=== PATIENT | male | born 1960 | race Caucasian/White ===

== ENCOUNTER 2017-10-28 03:23 | Inpatient (IN) | payer BC ==
[~2017-10-28] VITALS: Ht 167.6 cm; Wt 95.6 kg
[~2017-10-28 03:23] MED LIST: LOSA50TA6 PO; METF-383 PO; SIMV10TA2 PO
[2017-10-28] MEDS ORDERED: ONDANSETRON INJ 2 MG/ML 2 ML VIAL IV STA (03:33)
[2017-10-28] MEDS ORDERED: KETOROLAC TROMETHAMINE 30 MG/ML VIAL IV STA (03:33)
[2017-10-28] MEDS ORDERED: MoRPHine SULFATE 4 MG/ML 1 ML CARP\\VIAL IV STA ×2 (03:33→05:08)
[2017-10-28] MEDS ORDERED: SODIUM CHLORIDE 0.9% 1000ML 1,000 ML IV STA (03:39)
[2017-10-28 04:15] LABS: BASO % 0.4 %; BASO ABS # 0.03 K/uL (0-0.2); EOS % 3.7 %; EOS ABS # 0.28 K/uL (0-0.5); HEMATOCRIT 41.4 % (42-52); HEMOGLOBIN 14.5 g/dL (14.0-18.0); IG# 0.02 K/uL (0.00-0.02); LYMPH % 28.5 %; LYMPH ABS # 2.16 K/uL (1.2-3.4); MEAN CELL VOLUME 87.9 fL (80-100); MEAN CORPUSCULAR HEMOGLOBIN 30.8 pg (25-34); MEAN PLATELET VOLUME 11.6 fL (7.4-10.4); MONO ABS # 0.61 K/uL (0.11-0.59); NEUT % 59.1 %; NEUT ABS # 4.49 K/uL (1.4-6.5); PLATELET COUNT 144 K/uL (130-400); RED CELL DISTRIBUTION WIDTH SD 41.7 fL (36.4-46.3); WHITE BLOOD COUNT 7.59 K/uL (4.8-10.8)
[2017-10-28 04:55] LABS: ALBUMIN 3.6 gm/dl (3.4-5.0); CALCIUM 8.8 mg/dl (8.5-10.1); CREATININE 0.83 mg/dl (0.60-1.40); TOTAL PROTEIN 7.1 gm/dl (6.4-8.2)
[2017-10-28] MEDS ORDERED: OXYCODONE IR HOME PACK PO ONE (05:15)
[2017-10-28] MEDS ORDERED: ONDANSETRON HOME PACK 4MG OD TAB PO ONE (05:15)
[2017-10-28] MEDS ORDERED: HYDROmorphone INJ 1 MG/ML SYR IV STA (05:40)
[2017-10-28] MEDS ORDERED: TAMSULOSIN HCL 0.4 MG CAP PO ONE (05:45)
--- NOTE | 2017-10-28 05:46 | EMERGENCY ROOM VISIT NOTE ---
History First contact with patient: 03:31 Chief Complaint: KIDNEY STONE Stated Complaint: KIDNEY STONE History of Present Illness The patient is a 57 year old male who presents to the Emergency Room with complaints of sudden onset of severe left flank pain for the past 2 hours that woke him up out of sleep. Patient took 2 Motrin's with no real improvement of symptoms. Dr. Patricio is his urologist. He has had stents in the past. Patient denies chest pain, dyspnea, abdominal pain, penile pain, testicular pain , vomiting, diarrhea, fever, chills. Review of Systems An 10 system review of systems was completed with positives and pertinent negatives listed in the HPI. Past Medical/Surgical History Medical Problems: (1) Diab Mona Wo Compl, Type Ii Or Unspec Type, Not Uncntrld (2) Flank pain (3) Hyperlipidemia Nec/Nos (4) Hypertension Nos (5) Kidney stone (6) Kidney stones (7) Renal colic (8) Ureteral calculus, right (9) Urticaria (10) Urticaria Surgical Problems: (1) H/O lumbar discectomy (2) History of appendectomy (3) S/P lumbar laminectomy Family History Patient reports no known family medical history. Social History Smoking Status: Never Smoker Alcohol Use: occasionally Drug Use: none Marital Status: Housing Status: lives with family Occupation Status: employed Current/Historical Medications Scheduled Losartan Potassium (Cozaar), 50 MG PO QAM Metformin Hcl (Glucophage), 850 MG PO BID Simvastatin (Zocor), 10 MG PO QPM Physical Exam Vital Signs Date Time Temp Pulse Resp B/P (MAP) Pulse Ox O2 Delivery O2 Flow Rate FiO2 10/28/17 06:17 77 18 157/81 94 Room Air 10/28/17 04:58 72 18 148/72 96 Room Air 10/28/17 03:28 36.6 74 18 175/91 96 Room Air Physical Exam VITALS: Vitals are noted on the nurse's note and reviewed by myself. Vital signs hypertensive. GENERAL: White male who appears in pain, in no acute distress, nondiaphoretic, well-developed well-nourished. SKIN: Right upper back with sutures intact without signs of infection, the rest of the skin was without rashes, erythema, edema, or bruising. There is no tenting of the skin. Capillary reflex less than 2 seconds. HEAD: Normocephalic atraumatic. EARS: External auditory canals clear, tympanic membranes pearly johnson without erythema or effusion bilaterally. EYES: Pupils equal round and reactive to light and accommodation. Conjunctivae without injection, sclerae without icterus. Extraocular movements intact. NOSE: Patent, turbinates without inflammation or discharge. MOUTH: Mucous membranes moist. Pharynx without erythema or exudate. Uvula midline. Airway patent. Tongue does not deviate. NECK: Supple without nuchal rigidity. No lymphadenopathy. No thyromegaly. Cervical spine is nontender. No JVD. HEART: Regular rate and rhythm without murmurs gallops or rubs. LUNGS: Clear to auscultation bilaterally without wheezes, rales or rhonchi. No retractions or accessory muscle use. ABDOMEN: Positive bowel sounds x 4. Normal tympanic percussion. Soft, nontender, without masses or organomegaly. Joseph sign negative. No guarding or rebound tenderness. No CVA tenderness MUSCULOSKELETAL: No muscle atrophy, erythema, or edema noted. NEURO: Patient was alert and oriented to person place and time. Normal sensation to light and sharp touch. No focal neurological deficits. Medical Decision & Procedures Laboratory Results 10/28/17 04:00 Red Blood Count 4.71, Mean Corpuscular Volume 87.9, Mean Corpuscular Hemoglobin 30.8, Mean Corpuscular Hemoglobin Concent 35.0, Mean Platelet Volume 11.6, Neutrophils (%) (Auto) 59.1, Lymphocytes (%) (Auto) 28.5, Monocytes (%) (Auto) 8.0, Eosinophils (%) (Auto) 3.7, Basophils (%) (Auto) 0.4, Neutrophils # (Auto) 4.49, Lymphocytes # (Auto) 2.16, Monocytes # (Auto) 0.61, Eosinophils # (Auto) 0.28, Basophils # (Auto) 0.03 10/28/17 04:00 Test 10/28/17 04:00 10/28/17 04:50 White Blood Count 7.59 K/uL (4.8-10.8) Red Blood Count 4.71 M/uL (4.7-6.1) Hemoglobin 14.5 g/dL (14.0-18.0) Hematocrit 41.4 % (42-52) Mean Corpuscular Volume 87.9 fL (80-100) Mean Corpuscular Hemoglobin 30.8 pg (25-34) Mean Corpuscular Hemoglobin Concent 35.0 g/dl (32-36) Platelet Count 144 K/uL (130-400) Mean Platelet Volume 11.6 fL (7.4-10.4) Neutrophils (%) (Auto) 59.1 % Lymphocytes (%) (Auto) 28.5 % Monocytes (%) (Auto) 8.0 % Eosinophils (%) (Auto) 3.7 % Basophils (%) (Auto) 0.4 % Neutrophils # (Auto) 4.49 K/uL (1.4-6.5) Lymphocytes # (Auto) 2.16 K/uL (1.2-3.4) Monocytes # (Auto) 0.61 K/uL (0.11-0.59) Eosinophils # (Auto) 0.28 K/uL (0-0.5) Basophils # (Auto) 0.03 K/uL (0-0.2) RDW Standard Deviation 41.7 fL (36.4-46.3) RDW Coefficient of Variation 13.0 % (11.5-14.5) Immature Granulocyte % (Auto) 0.3 % Immature Granulocyte # (Auto) 0.02 K/uL (0.00-0.02) Anion Gap 9.0 mmol/L (3-11) Est Creatinine Clear Calc Drug Dose 104.5 ml/min Estimated GFR () 112.4 Estimated GFR (Non- 97.0 BUN/Creatinine Ratio 18.4 (10-20) Calcium Level 8.8 mg/dl (8.5-10.1) Total Bilirubin 0.4 mg/dl (0.2-1) Direct Bilirubin mg/dl (0-0.2) Aspartate Amino Transf (AST/SGOT) U/L (15-37) Alanine Aminotransferase (ALT/SGPT) 35 U/L (12-78) Alkaline Phosphatase 113 U/L (45-117) Total Protein 7.1 gm/dl (6.4-8.2) Albumin 3.6 gm/dl (3.4-5.0) Urine Color ORANGE Urine Appearance CLOUDY (CLEAR) Urine pH 5.0 (4.5-7.5) Urine Specific [place] 1.034 (1.000-1.030) Urine Protein 3+ (NEG) Urine Glucose (UA) TRACE (NEG) Urine Ketones NEG (NEG) Urine Occult Blood 3+ (NEG) Urine Nitrite POS (NEG) Urine Bilirubin NEG (NEG) Urine Urobilinogen NEG (NEG) Urine Leukocyte Esterase SMALL (NEG) Urine WBC (Auto) 5-10 /hpf (0-5) Urine RBC (Auto) >30 /hpf (0-4) Urine Hyaline Casts (Auto) 1-5 /lpf (0-5) Urine Epithelial Cells (Auto) 20-30 /lpf (0-5) Urine Bacteria (Auto) NEG (NEG) Medications Administered Medications (Trade) Dose Ordered Sig/Venancio Route Start Time Stop Time Status Last Admin Dose Admin Ketorolac Tromethamine (Toradol Inj) 10 mg NOW STAT IV 10/28/17 03:33 10/28/17 03:35 DC 10/28/17 04:02 10 MG Morphine Sulfate (MoRPHine SULFATE INJ) 4 mg NOW STAT IV 10/28/17 03:33 10/28/17 03:35 DC 10/28/17 04:02 4 MG Ondansetron HCl (Zofran Inj) 4 mg NOW STAT IV 10/28/17 03:33 10/28/17 03:35 DC 10/28/17 04:02 4 MG Sodium Chloride 1,000 ml @ 999 mls/hr Q1H1M STAT IV 10/28/17 03:39 10/28/17 04:39 DC 10/28/17 04:02 999 MLS/HR Morphine Sulfate (MoRPHine SULFATE INJ) 4 mg NOW STAT IV 10/28/17 05:08 10/28/17 05:10 DC 10/28/17 05:16 4 MG Oxycodone HCl (Roxicodone Immediate Rel 5MG Home Pack) 1 homepack UD ONCE PO 10/28/17 05:15 10/28/17 05:16 DC 10/28/17 05:16 1 HOMEPACK Ondansetron HCl (ZOFRAN ODT 4MG Home Pack) 1 homepack UD ONCE PO 10/28/17 05:15 10/28/17 05:16 DC 10/28/17 05:16 1 HOMEPACK Hydromorphone HCl (Dilaudid Inj) 1 mg NOW STAT IV 10/28/17 05:40 10/28/17 05:41 DC 10/28/17 05:48 1 MG Tamsulosin HCl (Flomax Cap) 0.4 mg NOW ONCE PO 10/28/17 05:45 10/28/17 05:46 DC 10/28/17 05:46 0.4 MG ED Course Prior records/ancillary studies reviewed. Triage Nursing notes reviewed. Additional history obtained from the family. The patient's history was concerning for left flank pain. Differential diagnosis: Etiologies such as renal colic, appendicitis, diverticulitis, mesenteric ischemia, aortic pathology, infections, inflammatory bowel disease, PUD, biliary pathology, UTI, as well as others were entertained. Physical examination findings: As above. ER treatment provided: Toradol, morphine, Zofran, IV fluids On reassessment the patient felt better. Diagnostic interpretation by me: The labs revealed hyperglycemia without DKA. Urinalysis revealed hematuria. There was no sign of UTI. Imaging studies: US RENAL: Mild left hydronephrosis. No right hydronephrosis. Decompressed urinary bladder limits assessment for ureteral jets. Radiologist: Vasquez Hull M.D. Consultation: A consultation was placed with Dr Gibson hospitalist. The case was discussed and diagnostics were reviewed. The patient was evaluated in the ER for further treatment. It appears that the patient has isolated renal colic from a left sided stone. Patient was still in severe amount of pain despite 4 rounds of pain meds and Flomax. Medicine was consulted for possible admission. Patient is agreement to treatment plan. Repeat abdominal exam was benign. He did not have acute abdomen on exam. He was afebrile and nontoxic. I do not believe the patient is a UTI. He was not complaining of any urinary symptoms. By the evaluation outlined above emergent etiologies such as appendicitis, diverticulitis, mesenteric ischemia, aortic pathology, infections, inflammatory bowel disease, PUD, biliary pathology, UTI, as well as others were deemed relatively unlikely. The pt informed about the findings as listed above. All questions were answered and pleased with the treatment. Case reviewed with my attending The chart was completed utilizing babbel voice recognition software. Grammatical errors, random word insertions, pronoun errors, and incomplete sentences are an occassional consequence of this system due to software limitations, ambient noise, and hardware issues. Any formal questions or concerns about the content, text, or information contained within the body of this dictation should be directly addressed to the physician product safety technical assistant for clarification. Medical Decision As above [place] Drug Monitoring Program Search Results: patient reviewed within database, no issues identified Medication Reconcilliation Current Medication List: was personally reviewed by me Blood Pressure Screening Patient's blood pressure: Elevated blood pressure Blood pressure disposition: Referred to PCP Impression Primary Impression: Ureteral calculus, left Additional Impressions: Intractable pain Diabetes mellitus with hyperglycemia Departure Information Dispostion Being Evaluated By Hospitalist Condition GOOD Referrals Isrrael Goyal M.D. (PCP) Patient Instructions My [facility] Problem Qualifiers
[2017-10-28] MEDS ORDERED: POLYETHYLENE (MIRALAX) 17 GM PACK PO PRN (06:00)
[2017-10-28] MEDS ORDERED: ONDANSETRON INJ 2 MG/ML 2 ML VIAL IV PRN (06:00)
[2017-10-28] MEDS ORDERED: ALUMINUM/MAGNESIUM/SIMETH (MAALOX MAX) 30 ML UDC PO PRN (06:00)
[2017-10-28] MEDS ORDERED: KETOROLAC TROMETHAMINE 30 MG/ML VIAL IV PRN (06:00)
[2017-10-28] MEDS ORDERED: ACETAMINOPHEN 325 MG TAB PO PRN (06:00)
[2017-10-28] MEDS ORDERED: HYDROmorphone INJ 0.5 MG/0.5 ML SYR IV PRN (06:00)
[2017-10-28] MEDS ORDERED: IV FLUIDS COMPLETED PRN ×2 (06:15→06:30)
[2017-10-28] MEDS ORDERED: CARBOHYDRATES FOR HYPOGLYCEMIA PO PRN (06:30)
[2017-10-28] MEDS ORDERED: GLUCOSE 40% GEL 15 GM TUBE PO PRN (06:30)
[2017-10-28] MEDS ORDERED: GLUCOSE 10 TABS/TUBE PO PRN (06:30)
[2017-10-28] MEDS ORDERED: GLUCAGON FOR INJ 1 MG VIAL IM PRN (06:30)
[2017-10-28] MEDS ORDERED: DEXTROSE 50% 50 ML SYR IV PRN (06:30)
[2017-10-28 06:38] VITALS: BP 147/86; PULSE 72; TEMP 36.7; O2SAT 92
--- NOTE | 2017-10-28 07:19 | DIAGNOSTIC IMAGING REPORT ---
KUB CLINICAL HISTORY: Nephrolithiasis. FINDINGS: 2 AP supine abdominal radiographs are correlated with abdominal CT dated 06/03/2013. There is a nonobstructed abdominal bowel gas pattern noting moderate colonic fecal retention. No evidence of intraperitoneal free air is seen on these supine images. There is no radiographic evidence of nephrolithiasis. Small vascular calcifications are noted in the pelvis. The skeletal structures are osteopenic. Mild lumbosacral spondylosis is observed. IMPRESSION: 1. There is no radiographic evidence of nephrolithiasis. 2. Moderate colonic fecal retention. Electronically signed by: Pravin Cleveland M.D. 10/28/2017 7:17 AM Dictated Date/Time: 10/28/2017 7:16 AM
--- NOTE | 2017-10-28 07:45 | HISTORY & PHYSICAL EXAMINATION ---
DATE OF ADMISSION: 10/28/2017 CHIEF COMPLAINT: Left flank pain. HISTORY OF PRESENT ILLNESS: This is a 57-year-old male with past medical history significant for hypertension, hyperlipidemia,kidney stones, diabetes, disaccharidase deficiency, presents with left flank pain. Patient woke up around 2 o'clock in the morning with severe left flank pain, which brought him to the ER. Patient has a history of kidney stones in the past. Ultrasound in the ER showed left hydronephrosis. He required lot of pain medications. Still has about 6/10 in severity pain. Denies any nausea, denies fever, no headaches, hard of hearing, no chest pain, no shortness of breath, no cough. Normal bowel and bladder movements. In the last bladder movement, he noted some blood, but he denies any pain while micturition. No rash. Patient is currently resting comfortably and hemodynamically stable. ALLERGIES: BEE VENOM AND OXYBUTYNIN. PAST MEDICAL HISTORY: As mentioned above. PAST SURGICAL HISTORY: Arthrocentesis, recently had a lipoma removed from the right side of his back, epidural shots, appendectomy, kidney stone removal. MEDICATIONS: Patient is on simvastatin 10 mg p.o. at bedtime, losartan 50 mg p.o. daily, metformin 850 mg p.o. b.i.d. FAMILY HISTORY: Significant for mother with arthritis, father had a heart disorder. SOCIAL HISTORY: No smoking history. Alcohol rarely. No drug use. REVIEW OF SYMPTOMS: As per HPI. Rest of his systems review negative. PHYSICAL EXAMINATION: GENERAL: Patient is of moderate build, not in distress. VITAL SIGNS: Temperature 36.6, pulse 102, respiratory rate 18, blood pressure 114/72, oxygen saturation 96% on room air. HEENT: No pallor, no icterus. Pupils equal, round, and reactive to light. NECK: No JVD, no neck masses, no carotid bruits. CARDIOVASCULAR SYSTEM: S1 and S2 heard, regular rate and rhythm, no murmur, no gallop. RESPIRATORY SYSTEM: Clear to auscultation bilaterally. No wheezing, no crackles. GASTROINTESTINAL: Abdomen is soft, bowel sounds present. Left CVA tenderness present. No distention. CENTRAL NERVOUS SYSTEM: Cranial nerves II through XII grossly intact. Nonfocal. EXTREMITIES: No edema, no erythema. LABORATORY DATA: WBC 7.5, hemoglobin 14.5, hematocrit 41.4, platelets 144. Sodium 138, chloride 105, CO2 of 24, BUN 15, creatinine 0.8, serum glucose 209, calcium 8.8, total bilirubin 0.4, alkaline phosphatase 113. Urinalysis positive for nitrite and leukocyte esterase. Renal ultrasound, unofficial report, left hydronephrosis. ASSESSMENT AND PLAN: This is a 57-year-old male who presents with renal colic. 1. Renal colic, possible left renal stone with the ultrasound showing left hydronephrosis. Will get a KUB. History of renal stones in the past. We will give him IV fluids, pain medicine, antiemetics p.r.n., Flomax. Will follow the urine culture. Consult urology for further recommendations. 2. History of diabetes. Hold metformin. Placed him on insulin sliding scale. 3. Hyperlipidemia. Continue statin. 4. Deep venous thrombosis prophylaxis. SCDs for now. 5. Disposition: Admit to medical floor. Expect discharge home and follow with family doctor. Level 1 full code. MTDD
--- NOTE | 2017-10-28 08:04 | DIAGNOSTIC IMAGING REPORT ---
(KAILEE/BLAD)RETROPERITON COMP CLINICAL HISTORY: 57 years-old Male presenting with left flank pain ? stone. TECHNIQUE: Real-time grayscale and limited color Doppler ultrasound imaging of the kidneys and bladder was performed. COMPARISON: CT from 06/03/2013 and ultrasound from 05/24/2013. FINDINGS: Right kidney: Normal echogenicity of renal parenchyma. Right kidney measures 11.1 cm. No hydronephrosis. No convincing evidence of calculus or mass. Left kidney: Normal echogenicity of renal parenchyma. Left kidney measures 12.4 cm. Mild pelvocaliectasis, new from prior. No convincing evidence of calculus or mass. Bladder: Decompressed and incompletely evaluated. Bilateral ureteral jets not visualized. Other: Hyperechogenicity of liver parenchyma suggests hepatic steatosis. The spleen is mildly enlarged measuring 13.7 cm in maximal sagittal dimension. IMPRESSION: 1. Mild left pelvocaliectasis. Mild left hydronephrosis cannot be excluded. Further evaluation with CT to be considered as clinically indicated. 2. Hepatic steatosis. 3. Mild splenomegaly. Electronically signed by: Hayden Awad M.D. 10/28/2017 8:02 AM Dictated Date/Time: 10/28/2017 7:59 AM
[2017-10-28 08:05] VITALS: BP 147/86; PULSE 72; TEMP 36.7; O2SAT 96; Ht 167.6 cm; Wt 95.6 kg
[2017-10-28] MEDS: SODIUM CHLORIDE 0.9% 1000ML 1,000 ML IV SCH ×3 (10:11→19:49)
[2017-10-28] MEDS: LOSARTAN POTASSIUM 50 MG TAB PO SCH (10:12)
[2017-10-28] MEDS: INSULIN ASPART 100 UNITS/ML 3 ML PEN SC SCH ×4 (10:15→21:52)
[2017-10-28] MEDS ORDERED: NURSING VERBAL MED ORDER ONE ×2 (12:30→22:30)
--- NOTE | 2017-10-28 13:27 | Urology Consultation ---
History General Date of Service: Oct 28, 2017. Primary Care Physician: Isrrael Goyal M.D. Pt seen a urologist before?: Yes (Dr. Patricio) If yes, why?: Nephrolithiasis History of Present Illness 57 YO male, left flank pain, mild left hydronephrosis, history of stones. Last seen for this issue by Dr. Patricio in 2013. Patient reported to the ER last night with worsening left flank pain. Imaging reviewed: stones not visible on KUB, renal US shows questionable left mild hydro. Creatinine stable at 0.83. Patient reports feeling better this morning, states that his pain is controlled with medication. Reports feeling hungry, denies nausea/vomiting. Is experiencing hematuria, is straining all urine. Denies dysuria, frequency, urgency. Denies fever/chills. Imaging Imaging: KUB, Ultrasound Images were done at: [facility] Laboratory Labs were reviewed and are within normal limits unless listed below. Labs are available in the chart and at [facility] Problem List Medical Problems: (1) Diab Mona Wo Compl, Type Ii Or Unspec Type, Not Uncntrld Status: Chronic (2) Diabetes mellitus with hyperglycemia Status: Acute (3) Hyperlipidemia Nec/Nos Status: Chronic (4) Hypertension Nos Status: Chronic (5) Intractable pain Status: Acute (6) Kidney stone Status: Chronic (7) Ureteral calculus, left Status: Acute Past History diabetes, high cholesterol, hypertension, kidney stones, other (hematuria) Past Surgical History: appendectomy, ureteral stent Family History Patient reports no known family medical history. Social History Hx Tobacco Use In Past Year?: No Smoking: non-smoker Alcohol: occasional Drug use: none Marital status: Occupation status: employed History of MDRO No Allergies Coded Allergies: BEE STING (Verified Allergy, Severe, local swelling to anaphylactic shock , 10/28/17) Oxybutynin (Verified Allergy, Intermediate, rash, 10/28/17) Medications Home Medications: Home Meds and Scripts Medications Dose Route/Sig Max Daily Dose Days Date Category Glucophage (Metformin Hcl) 850 Mg Tab 850 Mg PO BID 05/13/13 Reported Zocor (Simvastatin) 10 Mg Tab 10 Mg PO QPM 04/11/13 Reported Cozaar (Losartan Potassium) 50 Mg Tab 50 Mg PO QAM 04/11/13 Reported Inpatient Medications: Current Inpatient Medications Medications (Trade) Dose Ordered Sig/Venancio Route Start Time Stop Time Status Last Admin Dose Admin Acetaminophen (Tylenol Tab) 650 mg Q4H PRN PO 10/28/17 06:00 11/27/17 05:59 Al Hydrox/Mg Hydrox/Simethicone (Maalox Max Susp) 15 ml Q4H PRN PO 10/28/17 06:00 11/27/17 05:59 Polyethylene (Miralax Powder Packet) 17 gm DAILY PRN PO 10/28/17 06:00 11/27/17 05:59 Ondansetron HCl (Zofran Inj) 4 mg Q6H PRN IV 10/28/17 06:00 11/27/17 05:59 Losartan Potassium (coZAAR TAB) 50 mg QAM PO 10/28/17 09:00 11/27/17 08:59 10/28/17 10:12 50 MG Simvastatin (Zocor Tab) 10 mg QPM PO 10/28/17 21:00 11/27/17 20:59 Hydromorphone HCl (Dilaudid Inj) 0.5 mg Q3HWA PRN IV 10/28/17 06:00 11/11/17 05:59 Ketorolac Tromethamine (Toradol Inj) 30 mg Q6H PRN IV 10/28/17 06:00 11/02/17 05:59 Sodium Chloride 1,000 ml @ 150 mls/hr Q6H40M IV 10/28/17 06:00 11/27/17 05:59 10/28/17 12:52 150 MLS/HR Tamsulosin HCl (Flomax Cap) 0.4 mg QAM PO 10/29/17 09:00 11/28/17 08:59 Insulin Aspart (novoLOG ASPART) SLIDING SCALE G... ACHS SC 10/28/17 07:00 11/27/17 06:59 10/28/17 12:57 5 UNITS Miscellaneous (Iv Fluids Completed) 1 ea PRN PRN N/A 10/28/17 06:15 10/28/18 06:14 Glucose (Glucose 40% Gel) 15-30 GRAMS 15 GRAMS... UD PRN PO 10/28/17 06:30 11/27/17 06:29 Glucose (Glucose Chew Tab) 4-8 Tablets 4 Tabl... UD PRN PO 10/28/17 06:30 11/27/17 06:29 Dextrose (Dextrose 50% 50ML Syringe) 25-50ML 25ML FOR ... UD PRN IV 10/28/17 06:30 11/27/17 06:29 Glucagon (Glucagon Inj) 1 mg UD PRN IM 10/28/17 06:30 11/27/17 06:29 Carbohydrates (Carbohydrates For Hypoglycemia) 15-30 GRAMS 15 grams if BSG 54-69... UD PRN PO 10/28/17 06:30 11/27/17 06:29 Review of Systems Review of Systems Constitutional: No fever, No chills Eyes: No blurred vision Neurological: No dizzy, No numbness/tingling Gastrointestinal: + abdominal pain, No nausea, No vomiting Cardiovascular: No chest pain Respiratory: No shortness of breath Skin: No rash Musculoskeletal: + back pain Psychologic / Mental: No problem reported Male : + blood in urine, + kidney stones, No frequent urination, No painful urination, No urinary retention, No weak stream, No leaking urine Physical Exam Vital Signs: Vital Signs Past 12 Hours Date Time Temp Pulse Resp B/P (MAP) Pulse Ox O2 Delivery O2 Flow Rate FiO2 10/28/17 08:05 36.7 72 17 147/86 96 Room Air 10/28/17 06:38 36.7 72 17 147/86 (106) 92 Room Air 10/28/17 06:17 77 18 157/81 94 Room Air 10/28/17 04:58 72 18 148/72 96 Room Air 10/28/17 03:28 36.6 74 18 175/91 96 Room Air Physical Exam: General Appearance: no apparent distress Eyes: bilateral eyes normal inspection ENT: hearing grossly normal Neck: supple, no JVD Respiratory/Chest: no respiratory distress, no accessory muscle use Cardiovascular: no JVD Gastrointestinal: Abdomen: diffuse Bladder: normal bladder Renal: cva tenderness (left) Extremities: normal inspection Neurologic/Psychiatric: alert, normal mood/affect, oriented x 3 Skin: normal color Assessment & Plan Assessment & Plan 57 YO male, left flank pain, mild left hydronephrosis, history of stones. Stones not visible on KUB, questionable L hydro on renal US. Patient is experiencing gross hematuria. Creatinine stable. Afebrile, pain is controlled. Will check CT abdomen & pelvis to better visualize. Will check UC&S. Continue IVF, Flomax, push PO intake. Continue Zofran and pain control PRN. Will provide diet today, NPO at midnight in the event that surgical intervention is required tomorrow AM. Thank you for the consult, will continue to follow along with primary service. Agree with above . Non contrast ct confirms 4 mm proximal l ureteral stone . No renal stones kub in am and npo as above
[2017-10-28] MEDS ORDERED: OPTIRAY 320 IV PRN (13:45)
--- NOTE | 2017-10-28 13:52 | DIAGNOSTIC IMAGING REPORT ---
CT SCAN OF THE ABDOMEN AND PELVIS WITH IV CONTRAST CLINICAL HISTORY: Left flank pain. COMPARISON STUDY: Abdominal CT dated 06/03/2013. Renal ultrasound and KUB dated 10/28/2017. TECHNIQUE: Following the IV administration of 92 cc of Optiray 320, CT scan of the abdomen and pelvis is performed from the lung bases to the proximal femora. Images are reviewed in the axial, sagittal, and coronal planes. IV contrast was administered without complication. A dose lowering technique was utilized adhering to the principles of ALARA. CT DOSE: 990.45 mGy.cm FINDINGS: Lung bases: The heart is normal in size and without pericardial effusion. There is a 10 mm round pulmonary nodule seen at the left lung base on image #16. The lung bases are otherwise clear noting dependent atelectasis. There is a small fat-containing umbilical hernia. Liver: The contrast-enhanced liver is normal in size slightly heterogeneous in attenuation. There is mild nodularity of the hepatic surface contour. There is no intrahepatic biliary ductal dilatation. The hepatic veins and portal veins are patent. Gallbladder: Unremarkable. Spleen: The spleen is mildly enlarged, measuring 13.3 cm in length. Pancreas: Moderately atrophic and grossly unremarkable. Adrenal glands: Unremarkable. Kidneys: The contrast enhanced kidneys are normal in size. There is a 4 mm obstructing calculus identified in the left proximal ureter seen on image #236 at the level of L4. This causes mild left hydroureteronephrosis. No additional calculi are identified in either kidney on this contrast-enhanced examination. Bilateral perinephric stranding is nonspecific. The kidneys enhance symmetrically. Abdominal vasculature: The abdominal aorta is normal in course and caliber noting moderate atherosclerotic calcification. Bowel: There are scattered colonic diverticula without CT evidence of acute diverticulitis. Mild colonic fecal retention is observed. No bowel obstruction is seen. The appendix is not identified. Peritoneum: There is no intraperitoneal free air or abdominal ascites. Lymphadenopathy: None. Pelvic viscera: The bladder, prostate, and seminal vesicles are normal as visualized. Skeletal structures: No lytic or blastic lesions are seen. IMPRESSION: 1. There is a 4 mm obstructing calculus in the left proximal ureter at the level of L4. This causes mild left hydroureteronephrosis. 2. No additional calculi are identified in either kidney on this contrast-enhanced examination. 3. There is an indeterminant 10 mm pulmonary nodule at the left lung base. Follow-up with a nonemergent chest CT and pulmonology consultation is recommended. 4. The appearance of the liver suggests early change of cirrhosis. 5. Mild splenomegaly. 6. Additional findings as above. Electronically signed by: Pravin Cleveland M.D. 10/28/2017 1:51 PM Dictated Date/Time: 10/28/2017 1:41 PM
[2017-10-28 15:15] VITALS: BP 129/69; PULSE 69; TEMP 36.5; O2SAT 96
--- NOTE | 2017-10-28 15:22 | Hospitalist Progress Note ---
Hospitalist Progress Note Date of Service Oct 28, 2017. (Evelin Haro ., DARY) Subjective Pt evaluation today including: conversation w/ patient, physical exam, chart review, lab review, review of studies, conversation w/ compliance consultant Pt seen and examined. Pt sitting in bed, reports flank pain controlled for past 1.5 hours. Denies any nausea or vomiting. BM yesterday. Having some hematuria, denies dysuria, urinary frequency/retention. Denies fever/chills, diaphoresis, BOBO, dizziness, syncope, CP, SOB, other abdominal pain, extremity edema. (Evelin Haro ., DARY) Medications Medications (Trade) Dose Ordered Sig/Venancio Route Start Time Stop Time Status Last Admin Dose Admin Ketorolac Tromethamine (Toradol Inj) 10 mg NOW STAT IV 10/28/17 03:33 10/28/17 03:35 DC 10/28/17 04:02 10 MG Morphine Sulfate (MoRPHine SULFATE INJ) 4 mg NOW STAT IV 10/28/17 03:33 10/28/17 03:35 DC 10/28/17 04:02 4 MG Ondansetron HCl (Zofran Inj) 4 mg NOW STAT IV 10/28/17 03:33 10/28/17 03:35 DC 10/28/17 04:02 4 MG Sodium Chloride 1,000 ml @ 999 mls/hr Q1H1M STAT IV 10/28/17 03:39 10/28/17 04:39 DC 10/28/17 04:02 999 MLS/HR Morphine Sulfate (MoRPHine SULFATE INJ) 4 mg NOW STAT IV 10/28/17 05:08 10/28/17 05:10 DC 10/28/17 05:16 4 MG Oxycodone HCl (Roxicodone Immediate Rel 5MG Home Pack) 1 homepack UD ONCE PO 10/28/17 05:15 10/28/17 05:16 DC 10/28/17 05:16 1 HOMEPACK Ondansetron HCl (ZOFRAN ODT 4MG Home Pack) 1 homepack UD ONCE PO 10/28/17 05:15 10/28/17 05:16 DC 10/28/17 05:16 1 HOMEPACK Hydromorphone HCl (Dilaudid Inj) 1 mg NOW STAT IV 10/28/17 05:40 10/28/17 05:41 DC 10/28/17 05:48 1 MG Tamsulosin HCl (Flomax Cap) 0.4 mg NOW ONCE PO 10/28/17 05:45 10/28/17 05:46 DC 10/28/17 05:46 0.4 MG Losartan Potassium (coZAAR TAB) 50 mg QAM PO 10/28/17 09:00 11/27/17 08:59 10/28/17 10:12 50 MG Sodium Chloride 1,000 ml @ 150 mls/hr Q6H40M IV 10/28/17 06:00 11/27/17 05:59 10/28/17 12:52 150 MLS/HR Insulin Aspart (novoLOG ASPART) SLIDING SCALE G... ACHS SC 10/28/17 07:00 11/27/17 06:59 10/28/17 12:57 5 UNITS (Evelin Haro PA-C) Objective Vital Signs Date Time Temp Pulse Resp B/P (MAP) Pulse Ox O2 Delivery O2 Flow Rate FiO2 10/28/17 08:05 36.7 72 17 147/86 96 Room Air 10/28/17 06:38 36.7 72 17 147/86 (106) 92 Room Air 10/28/17 06:17 77 18 157/81 94 Room Air 10/28/17 04:58 72 18 148/72 96 Room Air 10/28/17 03:28 36.6 74 18 175/91 96 Room Air (Evelni Haro PA-C) Physical Exam General Appearance: no apparent distress, + obese Eyes: normal inspection, sclerae normal ENT: hearing grossly normal, pharynx normal, + pertinent finding (mucous membranes moist) Neck: supple, trachea midline Respiratory/Chest: lungs clear, normal breath sounds, no respiratory distress Cardiovascular: regular rate, rhythm, no murmur Abdomen: normal bowel sounds, non tender, soft, + pertinent finding (+L CVA tenderness) Extremities: normal range of motion, no pedal edema Neurologic/Psychiatric: alert, normal mood/affect, oriented x 3 Skin: warm/dry (Evelin Haro PA-C) Laboratory Results Last 24 Hours Test 10/28/17 04:00 10/28/17 04:50 10/28/17 08:19 White Blood Count 7.59 K/uL Red Blood Count 4.71 M/uL Hemoglobin 14.5 g/dL Hematocrit 41.4 % Mean Corpuscular Volume 87.9 fL Mean Corpuscular Hemoglobin 30.8 pg Mean Corpuscular Hemoglobin Concent 35.0 g/dl Platelet Count 144 K/uL Mean Platelet Volume 11.6 fL Neutrophils (%) (Auto) 59.1 % Lymphocytes (%) (Auto) 28.5 % Monocytes (%) (Auto) 8.0 % Eosinophils (%) (Auto) 3.7 % Basophils (%) (Auto) 0.4 % Neutrophils # (Auto) 4.49 K/uL Lymphocytes # (Auto) 2.16 K/uL Monocytes # (Auto) 0.61 K/uL Eosinophils # (Auto) 0.28 K/uL Basophils # (Auto) 0.03 K/uL RDW Standard Deviation 41.7 fL RDW Coefficient of Variation 13.0 % Immature Granulocyte % (Auto) 0.3 % Immature Granulocyte # (Auto) 0.02 K/uL Sodium Level 138 mmol/L Potassium Level mmol/L Chloride Level 105 mmol/L Carbon Dioxide Level 24 mmol/L Anion Gap 9.0 mmol/L Blood Urea Nitrogen 15 mg/dl Creatinine 0.83 mg/dl Est Creatinine Clear Calc Drug Dose 104.5 ml/min Estimated GFR () 112.4 Estimated GFR (Non- 97.0 BUN/Creatinine Ratio 18.4 Random Glucose 209 mg/dl Calcium Level 8.8 mg/dl Total Bilirubin 0.4 mg/dl Direct Bilirubin mg/dl Aspartate Amino Transf (AST/SGOT) U/L Alanine Aminotransferase (ALT/SGPT) 35 U/L Alkaline Phosphatase 113 U/L Total Protein 7.1 gm/dl Albumin 3.6 gm/dl Urine Color ORANGE Urine Appearance CLOUDY Urine pH 5.0 Urine Specific [place] 1.034 Urine Protein 3+ Urine Glucose (UA) TRACE Urine Ketones NEG Urine Occult Blood 3+ Urine Nitrite POS Urine Bilirubin NEG Urine Urobilinogen NEG Urine Leukocyte Esterase SMALL Urine WBC (Auto) 5-10 /hpf Urine RBC (Auto) >30 /hpf Urine Hyaline Casts (Auto) 1-5 /lpf Urine Epithelial Cells (Auto) 20-30 /lpf Urine Bacteria (Auto) NEG Bedside Glucose 222 mg/dl (Evelin Haro PA-C) Assessment and Plan L FLANK PAIN L HYDRONEPHROSIS Probable L ureteral stone -Pt reports pain controlled this morning. Having gross hematuria, no dysuria -pending urine culture -continue Toradol, Dilaudid prn pain -continue Flomax -strain urine -consider further imaging study - await urology recommendations -urology consult appreciate recommendations HTN -continue losartan DM II HA1c: 6.8 on 08/27/17 -hold metformin -basal, bolus insulin per protocol DYSLIPIDEMIA -continue simvastatin DVT Prophylaxis -SCDs in case possible procedure Disposition anticipate home, possible tomorrow Follows with Dr Goyal for routine care Pt was seen with Dr Cotto. See addendum (Evelin Haro PA-C) Attending addendum She seen and examined care coordinated with Gillian Haro PA-C 57-year-old male presents with a left flank pain KUB shows no visible renal stone, ultrasound of kidneys shows minimum/ questionable left-sided mild hydro-nephrosis Appreciate input from urology Flank pain has resolved this morning Renal function/creatinine stable at 0.[address] abdomen pelvis: Shows 4 mm obstructing left proximal ureteric stone Observed overnight Pain control, IV fluids N.p.o. past midnight until urology evaluation tomorrow Claire Cotto MD (Claire Cotto M.D.)
[2017-10-28] MEDS ORDERED: MAGNESIUM HYDROXIDE SUSP 30 ML UDC PO ONE (19:45)
[2017-10-28] MEDS ORDERED: MAGNESIUM HYDROXIDE SUSP 30 ML UDC PO PRN (19:45)
[2017-10-28] MEDS ORDERED: SIMVASTATIN 10 MG TAB PO SCH (21:00)
[2017-10-28] MEDS: INSULIN GLARGINE SOLOSTAR 100 UNITS/ML 3 ML PEN SC SCH (21:51)
[2017-10-28 23:59] VITALS: BP 137/74; PULSE 74; TEMP 36.7; O2SAT 95
[2017-10-29] MEDS: SODIUM CHLORIDE 0.9% 1000ML 1,000 ML IV SCH ×2 (02:12→08:40)
[2017-10-29] MEDS: INSULIN ASPART 100 UNITS/ML 3 ML PEN SC SCH ×3 (06:38→09:26)
[2017-10-29 07:42] LABS: BASO % 0.4 %; BASO ABS # 0.02 K/uL (0-0.2); EOS % 3.9 %; EOS ABS # 0.21 K/uL (0-0.5); HEMATOCRIT 36.2 % (42-52); HEMOGLOBIN 12.4 g/dL (14.0-18.0); IG# 0.02 K/uL (0.00-0.02); LYMPH % 33.1 %; MEAN CELL VOLUME 89.4 fL (80-100); MEAN CORPUSCULAR HEMOGLOBIN 30.6 pg (25-34); MEAN CORPUSCULAR HGB CONC 34.3 g/dl (32-36); MONO % 9.2 %; NEUT ABS # 2.88 K/uL (1.4-6.5); PLATELET COUNT 113 K/uL (130-400); RED CELL DISTRIBUTION WIDTH CV 13.2 % (11.5-14.5); RED CELL DISTRIBUTION WIDTH SD 42.7 fL (36.4-46.3); WHITE BLOOD COUNT 5.43 K/uL (4.8-10.8)
--- NOTE | 2017-10-29 08:02 | DIAGNOSTIC IMAGING REPORT ---
KUB CLINICAL HISTORY: 57 years-old Male presenting with ureteral stone. TECHNIQUE: Single supine view of the abdomen was obtained. COMPARISON: CT and KUB from 10/28/2017. FINDINGS: Mild stool burden noted throughout the colon. Nonobstructive bowel gas pattern. No gross pneumoperitoneum. The previously noted proximal left ureteral calculus at the level of L4 evident on CT is not identifiable by radiograph likely due to its punctate size. Stable calcifications in the pelvis. No radiographic evidence of renal calculi. Degenerative changes of the spine. Lung bases clear. IMPRESSION: 1. Nonvisualization of the punctate proximal left ureteral calculus previously visualized at the level of L4 on CT and not previously identifiable by radiograph. This may be best followed with ultrasound evaluating for resolution of the previously noted left hydronephrosis on CT. Electronically signed by: Hayden Awad M.D. 10/29/2017 8:01 AM Dictated Date/Time: 10/29/2017 7:58 AM
[2017-10-29 08:09] VITALS: BP 152/86; PULSE 70; TEMP 36.8; O2SAT 94
[2017-10-29 08:10] LABS: CALCIUM 7.9 mg/dl (8.5-10.1); CREATININE 0.67 mg/dl (0.60-1.40); POTASSIUM 4.2 mmol/L (3.5-5.1); URIC ACID 3.6 mg/dl (2.6-7.2)
[2017-10-29 08:16] VITALS: O2SAT 94
--- NOTE | 2017-10-29 08:57 | Urology Progress Note ---
Progress Note Date of Service Oct 29, 2017. Subjective Pt evaluation today including: conversation w/ patient, physical exam, chart review, lab review Pain: denies PO Intake: tolerating Voiding: no voiding problems 57 YO male, left flank pain, mild left hydronephrosis, 4mm left ureteral stone. Patient reports feeling well this morning. Denies pain, states he slept well and no issues with pain overnight. Denies fever/chills. Denies nausea. Denies issues voiding, states that hematuria has resolved. Feels that he empties bladder completely, no dysuria, no frequency, no urgency. Constitutional: No fever, No chills Respiratory: No shortness of breath Cardiovascular: No chest pain Abdomen: No pain, No nausea, No vomiting Male : No dysuria, No urinary frequency, No incontinence, No slowing stream, No hematuria Neurologic: No numbness/tingling Objective Vital Signs Date Time Temp Pulse Resp B/P (MAP) Pulse Ox O2 Delivery O2 Flow Rate FiO2 10/29/17 08:16 94 Room Air 10/29/17 08:09 36.8 70 16 152/86 (108) 94 Room Air 10/29/17 07:50 Room Air 10/29/17 00:10 Room Air 10/28/17 23:59 36.7 74 16 137/74 (95) 95 Room Air 10/28/17 15:50 Room Air 10/28/17 15:15 36.5 69 17 129/69 (89) 96 Room Air Physical Exam General Appearance: no apparent distress Eyes: normal inspection ENT: hearing grossly normal Neck: supple, no JVD Respiratory/Chest: no respiratory distress, no accessory muscle use Cardiovascular: no JVD Abdomen: non tender, soft Extremities: normal inspection Neurologic/Psychiatric: alert, normal mood/affect, oriented x 3 Skin: normal color Laboratory Results Last 24 Hours Test 10/28/17 12:13 10/28/17 17:09 10/28/17 20:59 10/29/17 00:00 Bedside Glucose 204 mg/dl 187 mg/dl 205 mg/dl 129 mg/dl Test 10/29/17 05:52 10/29/17 07:09 Bedside Glucose 124 mg/dl White Blood Count 5.43 K/uL Red Blood Count 4.05 M/uL Hemoglobin 12.4 g/dL Hematocrit 36.2 % Mean Corpuscular Volume 89.4 fL Mean Corpuscular Hemoglobin 30.6 pg Mean Corpuscular Hemoglobin Concent 34.3 g/dl Platelet Count 113 K/uL Mean Platelet Volume 11.0 fL Neutrophils (%) (Auto) 53.0 % Lymphocytes (%) (Auto) 33.1 % Monocytes (%) (Auto) 9.2 % Eosinophils (%) (Auto) 3.9 % Basophils (%) (Auto) 0.4 % Neutrophils # (Auto) 2.88 K/uL Lymphocytes # (Auto) 1.80 K/uL Monocytes # (Auto) 0.50 K/uL Eosinophils # (Auto) 0.21 K/uL Basophils # (Auto) 0.02 K/uL RDW Standard Deviation 42.7 fL RDW Coefficient of Variation 13.2 % Immature Granulocyte % (Auto) 0.4 % Immature Granulocyte # (Auto) 0.02 K/uL Sodium Level 139 mmol/L Potassium Level 4.2 mmol/L Chloride Level 108 mmol/L Carbon Dioxide Level 27 mmol/L Anion Gap 4.0 mmol/L Blood Urea Nitrogen 10 mg/dl Creatinine 0.67 mg/dl Est Creatinine Clear Calc Drug Dose 130.0 ml/min Estimated GFR () 122.8 Estimated GFR (Non- 105.9 BUN/Creatinine Ratio 14.7 Random Glucose 148 mg/dl Uric Acid 3.6 mg/dl Calcium Level 7.9 mg/dl Magnesium Level 2.4 mg/dl Assessment and Plan 57 YO male, left flank pain, mild left hydronephrosis, 4mm left ureteral stone. Denies pain overnight and this morning. Afebrile, Cr stable. Denies issues with urinary pattern. Stone still not visible on KUB, patient has history of ureteral stent placement and would like to avoid. 4mm stone has good chance of spontaneous passage. I reviewed criteria requiring emergent intervention including fever, nausea/ vomiting, or if pain becomes severe. Patient voices understanding. Recommend patient continue Flomax QHS and pain control PRN. Recommend patient push PO intake and continue to strain all urine. Will coordinate outpatient follow up in our office in 7-10 days to check on symptoms. Patient to call office sooner with questions/concerns. Thank you for allowing us to participate in the care of this patient.
[2017-10-29] MEDS ORDERED: TAMSULOSIN HCL 0.4 MG CAP PO SCH (09:00)
[2017-10-29] MEDS ORDERED: NURSING VERBAL MED ORDER ONE ×2 (09:00→12:30)
[2017-10-29] MEDS: LOSARTAN POTASSIUM 50 MG TAB PO SCH (09:07)
--- NOTE | 2017-10-29 09:07 | Hospitalist Progress Note ---
Hospitalist Progress Note Date of Service Oct 29, 2017. (Evelin Haro PA-C) Subjective Pt evaluation today including: conversation w/ patient, physical exam, chart review, lab review, review of studies Pt seen and examined. Patient sitting up in bed. Denies any flank pain since yesterday and reports is feeling well and has not needed any pain medications. Denies nausea or vomiting. Small BM last night. States no further gross hematuria noted since yesterday afternoon. Denies voiding difficulties or dysuria. Has been NPO after midnight for possible urology procedure today. Denies fever/chills, dizziness, CP, SOB, abdominal pain. (Evelin Haro PA-C) Medications Medications (Trade) Dose Ordered Sig/Venancio Route Start Time Stop Time Status Last Admin Dose Admin Losartan Potassium (coZAAR TAB) 50 mg QAM PO 10/28/17 09:00 11/27/17 08:59 10/28/17 10:12 50 MG Simvastatin (Zocor Tab) 10 mg QPM PO 10/28/17 21:00 11/27/17 20:59 10/28/17 21:49 10 MG Insulin Glargine (Lantus Solostar Pen) 5 units Q12 SC 10/28/17 21:00 11/27/17 20:59 10/28/17 21:51 5 UNITS Magnesium Hydroxide (Milk Of Magnesia Susp) 30 ml NOW ONCE PO 10/28/17 19:45 10/28/17 20:06 DC 10/28/17 20:13 30 ML (Evelin Haro PA-C) Objective Vital Signs Date Time Temp Pulse Resp B/P (MAP) Pulse Ox O2 Delivery O2 Flow Rate FiO2 10/29/17 08:16 94 Room Air 10/29/17 08:09 36.8 70 16 152/86 (108) 94 Room Air 10/29/17 07:50 Room Air 10/29/17 00:10 Room Air 10/28/17 23:59 36.7 74 16 137/74 (95) 95 Room Air 10/28/17 15:50 Room Air 10/28/17 15:15 36.5 69 17 129/69 (89) 96 Room Air (Schreckengost, Evelin ., PA-C) Physical Exam General Appearance: no apparent distress, + obese Eyes: normal inspection, sclerae normal ENT: hearing grossly normal, + pertinent finding (mucous membranes moist) Neck: supple, trachea midline Respiratory/Chest: lungs clear, normal breath sounds, no respiratory distress Cardiovascular: regular rate, rhythm Abdomen: normal bowel sounds, non tender, soft, + pertinent finding (no CVA tenderness to palpation) Extremities: normal range of motion, no pedal edema Neurologic/Psychiatric: alert, normal mood/affect, oriented x 3 Skin: warm/dry (Evelin Haro, PA-C) Laboratory Results Last 24 Hours Test 10/28/17 12:13 10/28/17 17:09 10/28/17 20:59 10/29/17 00:00 Bedside Glucose 204 mg/dl 187 mg/dl 205 mg/dl 129 mg/dl Test 10/29/17 05:52 10/29/17 07:09 Bedside Glucose 124 mg/dl White Blood Count 5.43 K/uL Red Blood Count 4.05 M/uL Hemoglobin 12.4 g/dL Hematocrit 36.2 % Mean Corpuscular Volume 89.4 fL Mean Corpuscular Hemoglobin 30.6 pg Mean Corpuscular Hemoglobin Concent 34.3 g/dl Platelet Count 113 K/uL Mean Platelet Volume 11.0 fL Neutrophils (%) (Auto) 53.0 % Lymphocytes (%) (Auto) 33.1 % Monocytes (%) (Auto) 9.2 % Eosinophils (%) (Auto) 3.9 % Basophils (%) (Auto) 0.4 % Neutrophils # (Auto) 2.88 K/uL Lymphocytes # (Auto) 1.80 K/uL Monocytes # (Auto) 0.50 K/uL Eosinophils # (Auto) 0.21 K/uL Basophils # (Auto) 0.02 K/uL RDW Standard Deviation 42.7 fL RDW Coefficient of Variation 13.2 % Immature Granulocyte % (Auto) 0.4 % Immature Granulocyte # (Auto) 0.02 K/uL Sodium Level 139 mmol/L Potassium Level 4.2 mmol/L Chloride Level 108 mmol/L Carbon Dioxide Level 27 mmol/L Anion Gap 4.0 mmol/L Blood Urea Nitrogen 10 mg/dl Creatinine 0.67 mg/dl Est Creatinine Clear Calc Drug Dose 130.0 ml/min Estimated GFR () 122.8 Estimated GFR (Non- 105.9 BUN/Creatinine Ratio 14.7 Random Glucose 148 mg/dl Uric Acid 3.6 mg/dl Calcium Level 7.9 mg/dl Magnesium Level 2.4 mg/dl (Evelin Haro ., PA-C) Diagnostic Results 10/28/17: ABD/PELVIS CT IMPRESSION: 1. There is a 4 mm obstructing calculus in the left proximal ureter at the level of L4. This causes mild left hydroureteronephrosis. 2. No additional calculi are identified in either kidney on this contrast-enhanced examination. 3. There is an indeterminant 10 mm pulmonary nodule at the left lung base. Follow-up with a nonemergent chest CT and pulmonology consultation is recommended. 4. The appearance of the liver suggests early change of cirrhosis. 5. Mild splenomegaly. 6. Additional findings as above. 10/29/17 KUB: IMPRESSION: 1. Nonvisualization of the punctate proximal left ureteral calculus previously visualized at the level of L4 on CT and not previously identifiable by radiograph. This may be best followed with ultrasound evaluating for resolution of the previously noted left hydronephrosis on CT. (Evelin Haro ., PA-C) Assessment and Plan L FLANK PAIN L HYDRONEPHROSIS/L URETER STONE Yesterday on CT abd/pelvis: 4 mm obstructing calculus in the left proximal ureter with mild left hydroureteronephrosis. -Pt reports no further pain since yesterday, has not needed pain medications. Gross hematuria resolving. No N/V. Has not noted that passed stone in urine. Renal functions stable. -has been NPO since midnight for possible urology procedure today -pending urine culture -continue Toradol, Dilaudid prn pain -continue Flomax -strain urine -urology consult appreciate recommendations - awaiting recommendation if urology procedure to be completed today HTN -continue losartan DM II HA1c: 6.8 on 08/27/17 -hold metformin -basal, bolus insulin per protocol PULMONARY NODULE Seen on Abd/Pelvis CT: indeterminant 10 mm pulmonary nodule at the left lung base. -CT Chest: 1. 8.0 x 8.5 mm well-circumscribed nodule left lung base. 2. Follow-up per Fleischner criteria. -pulmonology follow up out patient recommended DYSLIPIDEMIA -continue simvastatin DVT Prophylaxis -SCDs in case possible procedure Disposition to home, possible today if no urology procedure Follows with Dr Goyal for routine care Pt was seen with Dr Cotto. See addendum (Evelin Haro PA-C) ATTENDING ADDENDUM: Left flank pain has resolved, no nausea vomiting, no fever or chills Ambulating independently Appreciate evaluation from urology Due to small size/4 mm stone chance of spontaneous passage is highly likely No urological intervention needed Patient is present pain-free, no evidence of infection Recommend to discharge home with p.o. Flomax Pain control Encouraged to drink plenty of fluids, strain all urine specimen Outpatient follow-up with urology in a week, neurology office will call with appointment date and time Incidental finding of pulmonary nodule Outpatient surveillance CT chest with contrast and pulmonology follow-up Claire Cotto MD (Claire Cotto M.D.)
[2017-10-29] MEDS: INSULIN GLARGINE SOLOSTAR 100 UNITS/ML 3 ML PEN SC SCH (09:28)
[2017-10-29] MEDS ORDERED: OPTIRAY 320 IV PRN (10:15)
[2017-10-29] MEDS ORDERED: INSULIN ASPART 100 UNITS/ML 3 ML PEN SC SCH (12:00)
--- NOTE | 2017-10-29 14:13 | DIAGNOSTIC IMAGING REPORT ---
CT (CHEST) THORAX WITH CT DOSE: 590.84 mGy.cm HISTORY: Nodule pulm nodule TECHNIQUE: Multiaxial CT images of the chest were performed following the intravenous administration of contrast. A dose lowering technique was utilized adhering to the principles of ALARA. COMPARISON: CT abdomen 10/28/2017 FINDINGS: 8 8 x 8.5 mm parenchymal nodule left lung base. Margins are well-circumscribed. Possible small medially adjacent focus of calcification. Area lungs otherwise appear clear. No significant mediastinal or hilar adenopathy. Within the subcutaneous tissues of the upper right thoracic region posteriorly as a high density subcutaneous fluid pocket measuring 8 x 3 cm. Potentially represents hematoma seroma or other pathology. Ultrasound suggested as follow-up. IMPRESSION: 1. 8.0 x 8.5 mm well-circumscribed nodule left lung base. 2. Follow-up per Fleischner criteria. 3. High density fluid pocket posterior subcutaneous fat right posterior upper thoracic region versus low-density lesion. Ultrasound is suggested for further evaluation. The above report was generated using voice recognition software. It may contain grammatical, syntax or spelling errors. Electronically signed by: Kevin Caro M.D. 10/29/2017 2:11 PM Dictated Date/Time: 10/29/2017 1:58 PM
--- NOTE | 2017-10-29 14:58 | Discharge Instructions ---
Discharge Instructions Date of Service Oct 29, 2017. Admission Reason for Admission: Renal Colic Discharge Discharge Diagnosis / Problem: Mild left hydronephrosis, 4mm left ureteral stone, Pulmonary nodule Discharge Goals Goal(s): Decrease discomfort, Improve function, Improve disease control Activity Recommendations Activity Limitations: resume your previous activity . Instructions / Follow-Up Instructions / Follow-Up Follow up with PCP on 11/05/2017 at 10:[address] Davonte Medel MD [facility] You will be receiving phone call from [facility] for follow up appointment to be scheduled in the next week. [address] [place] [address] , [place] [address] Drink plenty of fluids Strain all Urine. You have oxycodone pain medication at home. You can take that as directed as needed for pain. Avoid driving or using heavy machinery or drinking alcohol when using narcotic pain medication. Take antibiotic as directed. Take Flomax daily. Do not take your Metformin for 48 hours as you have received IV contrast in the hospital today. You were found to have a pulmonary nodule on CT scan. You are to follow up with your PCP and also recommend follow up with wood drilling machine operator. Current Hospital Diet Patient's current hospital diet: Diabetes Type 2 Diet Discharge Diet Recommended Diet: AHA Diet (Heart Healthy) Procedures Procedures Performed: CT ABDOMEN/PELVIS: IMPRESSION: 1. There is a 4 mm obstructing calculus in the left proximal ureter at the level of L4. This causes mild left hydroureteronephrosis. 2. No additional calculi are identified in either kidney on this contrast-enhanced examination. 3. There is an indeterminant 10 mm pulmonary nodule at the left lung base. Follow-up with a nonemergent chest CT and pulmonology consultation is recommended. 4. The appearance of the liver suggests early change of cirrhosis. 5. Mild splenomegaly. CT CHEST: IMPRESSION: 1. 8.0 x 8.5 mm well-circumscribed nodule left lung base. 2. Follow-up per Fleischner criteria. 3. High density fluid pocket posterior subcutaneous fat right posterior upper thoracic region versus low-density lesion. Pending Studies Studies pending at discharge: yes List of pending studies: Urine culture Medical Emergencies . Who to Call and When: Medical Emergencies: If at any time you feel your situation is an emergency, please call 911 immediately. . Non-Emergent Contact Non-Emergency issues call your: Primary Care Provider, Urologist Call Non-Emergent contact if: you have a fever, your pain is not controlled, your pain is worsening . Past History Medical & Surgical History: (1) Kidney stones (2) HTN (hypertension) (3) Dyslipidemia (4) Ureteral calculus, left (5) DM II (diabetes mellitus, type II), controlled . "Provider Documentation" section prepared by Evelin Haro. . Climatology Teacher Recommendations Climatology Teacher Recommendations: Urology recommends continue to take Flomax daily in the evening. Recommend patient drink plenty of fluids, continue to strain all urine. Will coordinate outpatient follow up in urology office in 7-10 days to check on symptoms. Patient to call office sooner with questions/concerns. [place] Drug [place] Search Results: patient reviewed within database Drug Monitoring Findings: Pt Rx oxycodone 10/12/17 for # 30 tablets
[2017-10-29] MEDS ORDERED: TAMS0.4C38 PO ×2 (15:00→15:06)
[2017-10-29] MEDS ORDERED: CPR500 PO ×2 (15:00→15:06)
[2017-10-29] MEDS ORDERED: METF-383 PO (15:03)
[2017-10-29 15:06] VITALS: BP 154/78; PULSE 72; TEMP 36.8; O2SAT 95
--- NOTE | 2017-10-29 15:25 | Discharge Summary ---
Discharge Summary Date of Service Oct 29, 2017. Discharge Summary Admission Date: Oct 28, 2017 at 06:08 Discharge Date: Oct 29, 2017 Discharge Disposition: Home Principal Diagnosis: Left ureteral stone, Left hydronephrosis Secondary Diagnoses/Problems: Pulmonary nodule Procedures: CT ABDOMEN/PELVIS: IMPRESSION: 1. There is a 4 mm obstructing calculus in the left proximal ureter at the level of L4. This causes mild left hydroureteronephrosis. 2. No additional calculi are identified in either kidney on this contrast-enhanced examination. 3. There is an indeterminant 10 mm pulmonary nodule at the left lung base. Follow-up with a nonemergent chest CT and pulmonology consultation is recommended. 4. The appearance of the liver suggests early change of cirrhosis. 5. Mild splenomegaly. CT CHEST: IMPRESSION: 1. 8.0 x 8.5 mm well-circumscribed nodule left lung base. 2. Follow-up per Fleischner criteria. 3. High density fluid pocket posterior subcutaneous fat right posterior upper thoracic region versus low-density lesion. Consultations: [facility] - [place] PERALTA, Dr Flannery Pending Studies/Follow-Up: Urine culture Medication Reconciliation New Medications: Ciprofloxacin (Ciprofloxacin HCl) 500 Mg Tab 1 TAB PO Q12, #10 TAB 0 Refills Tamsulosin Hcl (Flomax) 0.4 Mg Cap 0.4 MG PO HS, #10 CAP Changed Medications: Metformin Hcl (Glucophage) 850 Mg Tab 850 MG PO BID for 30 Days, #60 TAB (Medication details modified) Hold metformin for 48 hours. Start taking again 10/31/17 Continued Medications: Losartan Potassium (Cozaar) 50 Mg Tab 50 MG PO QAM, TAB Simvastatin (Zocor) 10 Mg Tab 10 MG PO QPM, TAB Admission Information HPI (per Admitting provider): CHIEF COMPLAINT: Left flank pain. HISTORY OF PRESENT ILLNESS: This is a 57-year-old male with past medical history significant for hypertension, hyperlipidemia,kidney stones, diabetes, disaccharidase deficiency, presents with left flank pain. Patient woke up around 2 o'clock in the morning with severe left flank pain, which brought him to the ER. Patient has a history of kidney stones in the past. Ultrasound in the ER showed left hydronephrosis. He required lot of pain medications. Still has about 6/10 in severity pain. Denies any nausea, denies fever, no headaches, hard of hearing, no chest pain, no shortness of breath, no cough. Normal bowel and bladder movements. In the last bladder movement, he noted some blood, but he denies any pain while micturition. No rash. Patient is currently resting comfortably and hemodynamically stable. Physical Exam (per Admitting): PHYSICAL EXAMINATION: GENERAL: Patient is of moderate build, not in distress. VITAL SIGNS: Temperature 36.6, pulse 102, respiratory rate 18, blood pressure 114/72, oxygen saturation 96% on room air. HEENT: No pallor, no icterus. Pupils equal, round, and reactive to light. NECK: No JVD, no neck masses, no carotid bruits. CARDIOVASCULAR SYSTEM: S1 and S2 heard, regular rate and rhythm, no murmur, no gallop. RESPIRATORY SYSTEM: Clear to auscultation bilaterally. No wheezing, no crackles. GASTROINTESTINAL: Abdomen is soft, bowel sounds present. Left CVA tenderness present. No distention. CENTRAL NERVOUS SYSTEM: Cranial nerves II through XII grossly intact. Nonfocal. EXTREMITIES: No edema, no erythema. Hospital Course L FLANK PAIN L HYDRONEPHROSIS/L URETER STONE CT abd/pelvis: 4 mm obstructing calculus in the left proximal ureter with mild left hydroureteronephrosis. -Pt reports no further pain has not needed pain medications for past 24 hours. Gross hematuria resolving. No N/V. Has not noted that passed stone in urine with urine straining. -Renal functions remained stable -urine culture: pinpoint bacteria, final urine culture pending -continued daily Flomax -urology consult - recommended straining urine, continue flomax, push oral fluids, suspect pt will spontaneously pass stone, out patient urology follow up HTN Remained Stable -continue losartan DM II HA1c: 6.8 on 08/27/17 -metformin was held while hospitalized -basal, bolus insulin per protocol -pt to hold his metformin outpatient for 48 hours since received IV contrast PULMONARY NODULE Initially seen on Abd/Pelvis CT: indeterminant 10 mm pulmonary nodule at the left lung base. -CT Chest: 1. 8.0 x 8.5 mm well-circumscribed nodule left lung base. 2. Follow-up per Fleischner criteria. -out patient follow up with PCP -out patient pulmonology follow up recommended DYSLIPIDEMIA -continue simvastatin DVT PROPHYLAXIS -Lovenox DISPOSITION : stable to be discharged home today Total time spent on discharge = 40 minutes This includes examination of the patient, discharge planning, medication reconciliation, and communication with other providers. Discharge Instructions Discharge Instructions Date of Service Oct 29, 2017. Admission Reason for Admission: Renal Colic Discharge Discharge Diagnosis / Problem: Mild left hydronephrosis, 4mm left ureteral stone, Pulmonary nodule Discharge Goals Goal(s): Decrease discomfort, Improve function, Improve disease control Activity Recommendations Activity Limitations: resume your previous activity . Instructions / Follow-Up Instructions / Follow-Up Follow up with PCP on 11/05/2017 at 10:[address] Davonte Medel MD [facility] You will be receiving phone call from [facility] for follow up appointment to be scheduled in the next week. [address] [place] [address] , [place] [address] Drink plenty of fluids Strain all Urine. You have oxycodone pain medication at home. You can take that as directed as needed for pain. Avoid driving or using heavy machinery or drinking alcohol when using narcotic pain medication. Take antibiotic as directed. Take Flomax daily. Do not take your Metformin for 48 hours as you have received IV contrast in the hospital today. You were found to have a pulmonary nodule on CT scan. You are to follow up with your PCP and also recommend follow up with motor expert. Current Hospital Diet Patient's current hospital diet: Diabetes Type 2 Diet Discharge Diet Recommended Diet: AHA Diet (Heart Healthy) Procedures Procedures Performed: CT ABDOMEN/PELVIS: IMPRESSION: 1. There is a 4 mm obstructing calculus in the left proximal ureter at the level of L4. This causes mild left hydroureteronephrosis. 2. No additional calculi are identified in either kidney on this contrast-enhanced examination. 3. There is an indeterminant 10 mm pulmonary nodule at the left lung base. Follow-up with a nonemergent chest CT and pulmonology consultation is recommended. 4. The appearance of the liver suggests early change of cirrhosis. 5. Mild splenomegaly. CT CHEST: IMPRESSION: 1. 8.0 x 8.5 mm well-circumscribed nodule left lung base. 2. Follow-up per Fleischner criteria. 3. High density fluid pocket posterior subcutaneous fat right posterior upper thoracic region versus low-density lesion. Pending Studies Studies pending at discharge: yes List of pending studies: Urine culture Medical Emergencies . Who to Call and When: Medical Emergencies: If at any time you feel your situation is an emergency, please call 911 immediately. . Non-Emergent Contact Non-Emergency issues call your: Primary Care Provider, Urologist Call Non-Emergent contact if: you have a fever, your pain is not controlled, your pain is worsening . Past History Medical & Surgical History: (1) Kidney stones (2) HTN (hypertension) (3) Dyslipidemia (4) Ureteral calculus, left (5) DM II (diabetes mellitus, type II), controlled . "Provider Documentation" section prepared by Evelin Haro. . [facility] Recommendations T[facility] Recommendations: Urology recommends continue to take Flomax daily in the evening. Recommend patient drink plenty of fluids, continue to strain all urine. Will coordinate outpatient follow up in urology office in 7-10 days to check on symptoms. Patient to call office sooner with questions/concerns. [place] Drug Monitoring Program Search Results: patient reviewed within database Drug Monitoring Findings: Pt Rx oxycodone 10/12/17 for # 30 tablets Additional Copies To Davonte Flannery M.D.
[2017-10-29 17:04] VITALS: BP 154/78; PULSE 72; TEMP 36.8; O2SAT 95
== END 2017-10-29 17:30 | disposition home or self-care (01) | DRG 694 ==
LOC: C.EDB 03:25 → C.MSW 06:08 → EDBEDREQ 06:12 → ENRESERV 06:13
PROVIDERS: ADMIT Internal Medicine; ATTEND Hospitalist
DX: N20.1 Calculus of ureter (principal); N13.30 Unspecified hydronephrosis; R31.0 Gross hematuria; E11.9 Type 2 diabetes mellitus without complications; I10 Essential (primary) hypertension; E78.5 Hyperlipidemia, unspecified; R91.1 Solitary pulmonary nodule; Z87.442 Personal history of urinary calculi; Z79.84 Long term (current) use of oral hypoglycemic drugs; Z79.899 Other long term (current) drug therapy; Z88.8 Allergy status to other drugs, medicaments and biological substances; Z91.030 Bee allergy status

== ENCOUNTER → 2017-11-06 | Outpatient (CLI) | payer BC ==
[~2017-11-06] MED LIST changes: +CPR500 PO; +TAMS0.4C38 PO
--- NOTE | 2017-11-06 10:24 | DIAGNOSTIC IMAGING REPORT ---
[facility]UB CLINICAL HISTORY: N20.0 Nephrolithiasis COMPARISON STUDY: 10/29/2017 FINDINGS: The soft tissues, psoas shadows, renal outlines and intestinal gas pattern appear normal. There is no evidence for bowel obstruction. No abnormal abdominal calcifications are seen. IMPRESSION: Normal study. The left ureteral calculus seen on a prior CT study is not identified on plain film criteria. The above report was generated using voice recognition software. It may contain grammatical, syntax or spelling errors. Electronically signed by: Kevin Caro M.D. 11/06/2017 10:23 AM Dictated Date/Time: 11/06/2017 10:22 AM
== END | disposition home or self-care (01) ==
LOC: C.RAD 09:58
PROVIDERS: ATTEND Nurse Practitioner Family
DX: N20.1 Calculus of ureter (principal)

== ENCOUNTER → 2017-11-09 | Outpatient (CLI) | payer BC | END | disposition home or self-care (01) | LOC: C.LABSPEC 17:32 | PROVIDERS: ATTEND Urology | DX: N20.0 Calculus of kidney (principal) ==